=== PATIENT | female | born 1950 | race African-American/Black ===

== ENCOUNTER 2024-02-05 15:42 | Emergency (ER) | payer OTHER ==
[~2024-02-05] VITALS: Ht 170.2 cm; Wt 120.0 kg
[2024-02-05 15:48] VITALS: O2SAT 100
[2024-02-05] MEDS: KETOROLAC 30MG/ML VIAL IM ONE (16:20)
[2024-02-05 17:46] LABS: BASOPHILS % 0.4 % (0.0-2.0); HEMATOCRIT. 33.7 % (36.0-48.0); HEMOGLOBIN. 11.3 g/dL (12.0-16.0); LYMPHOCYTES % 13.9 % (20.0-50.0); MEAN CORPUSCULAR HEMOGLOBIN 30.1 pg (28.0-32.0); MEAN CORPUSCULAR HGB CONC 33.4 g/dL (31.0-37.0); MEAN PLATELET VOLUME 6.7 fl (7.4-10.4); MONOCYTES % 6.5 % (2.0-8.0); NEUTROPHILS % 79.2 % (40.0-76.0); PLATELET 270 x1000/uL (130-400); RED BLOOD CELL COUNT 3.75 mill/uL (4.2-5.4); RED CELL DISTRIBUTION WIDTH 14.7 % (11.6-14.6); WHITE BLOOD COUNT 7.9 x1000/uL (4.5-11.0)
[2024-02-05 17:50] LABS: CHLORIDE 108 mEq/L (98-107); POTASSIUM 3.5 mEq/L (3.5-5.1); SODIUM 143 mEq/L (136-145)
[2024-02-05 17:51] LABS: CALCIUM 9.7 mg/dL (8.7-10.4); CARBON DIOXIDE 27 mEq/L (21-32)
[2024-02-05 17:56] LABS: CREATININE 1.2 mg/dL (0.6-1.0); GLUCOSE 92 mg/dL (70-105); UREA NITROGEN BLOOD 25 mg/dL (9-23)
[2024-02-05 17:57] LABS: PROTHROMBIN TIME 11.6 sec (9.6-11.0)
[2024-02-05 17:58] LABS: ALANINE AMINOTRANSFERASE 8 IU/L (10-49); ALBUMIN 4.5 g/dL (3.2-4.8); ASPARTATE AMINOTRANSFERASE 17 IU/L (<34); BILIRUBIN TOTAL 0.8 mg/dL (0.1-1.0); PROTEIN TOTAL 7.9 g/dL (6.0-8.3)
[2024-02-05 18:00] LABS: TROPONIN I HIGH SENSITIVITY 56 ng/L (3.0-34)
[2024-02-05] MEDS: SODIUM CHLORIDE 0.9% 1,000 ML IV ONE (18:10)
[2024-02-05 19:17] LABS: CLARITY URINE CLEAR (CLEAR); COLOR URINE YELLOW (YELLOW); GLUCOSE URINE NEGATIVE (NEGATIVE); KETONES URINE NEGATIVE (NEGATIVE); LEUKOCYTE ESTERASE URINE NEGATIVE (NEGATIVE); NITRITE URINE NEGATIVE (NEGATIVE); OCCULT BLOOD URINE NEGATIVE (NEGATIVE); PROTEIN URINE NEGATIVE (NEGATIVE); SPECIFIC GRAVITY URINE 1.021 (1.005-1.030); UROBILINOGEN URINE 0.2 E.U./dL (0.2-1.0)
[2024-02-05] MEDS: ASPIRIN 81MG TABLET PO ONE (19:58)
[2024-02-05] MEDS: FUROSEMIDE 40MG/4ML VIAL IVP ONE (19:58)
[2024-02-05 22:49] VITALS: BP 138/80; PULSE 75; RESP 16; TEMP 98.9
== END 2024-02-05 23:04 | disposition short-term general hospital (02) ==
LOC: ER 15:42
DX: R41.82 Altered mental status, unspecified (principal); I63.9 Cerebral infarction, unspecified; N17.9 Acute kidney failure, unspecified; M17.11 Unilateral primary osteoarthritis, right knee; I11.0 Hypertensive heart disease with heart failure; I50.9 Heart failure, unspecified; E11.9 Type 2 diabetes mellitus without complications
CPT/HCPCS: 99291; 96374; 70450; 71045; 96361; 80053; 81003; 83880; 85025; 85610; 84484; 36415; 73560; 93005; 96372; J1940; J1885; J7030

== ENCOUNTER 2025-08-07 10:06 | Emergency (ER) | payer OTHER, MEDICAID ==
[~2025-08-07] VITALS: Ht 170.2 cm; Wt 130.0 kg
[2025-08-07 10:08] VITALS: O2SAT 98
[2025-08-07 12:40] LABS: HEMATOCRIT. 35.4 % (36.0-48.0); HEMOGLOBIN. 11.3 g/dL (12.0-16.0); MEAN PLATELET VOLUME 6.9 fl (7.4-10.4); PLATELET 54 x1000/uL (130-400); RED BLOOD CELL COUNT 3.43 mill/uL (4.2-5.4); RED CELL DISTRIBUTION WIDTH 15.2 % (11.6-14.6)
[2025-08-07 12:52] LABS: CREATININE 0.9 mg/dL (0.6-1.0); UREA NITROGEN BLOOD 12 mg/dL (9-23)
[2025-08-07 12:55] LABS: TROPONIN I HIGH SENSITIVITY 49 ng/L (3.0-34)
[2025-08-07 13:09] LABS: BAND% 2.0 % (1.0-6.0); EOSINOPHILS % MANUAL 1.0 % (0.0-5.0); LYMPHOCYTES % MANUAL 18.0 % (20.0-60.0); MONOCYTES % MANUAL 8.0 % (2.0-8.0); NEUTROPHILS % MANUAL 71.0 % (45.0-75.0); NUCLEATED RED BLOOD CELLS 1 /100 WBC
[2025-08-07 13:10] LABS: PLATELET ESTIMATE DECREASED
[2025-08-07 13:46] VITALS: BP 177/65; PULSE 59; RESP 25; TEMP 37; O2SAT 98
== END 2025-08-07 14:00 | disposition short-term general hospital (02) ==
LOC: ER 10:06
DX: R53.1 Weakness (principal); E87.8 Other disorders of electrolyte and fluid balance, not elsewhere classified; E11.9 Type 2 diabetes mellitus without complications; I10 Essential (primary) hypertension; R51.9 Headache, unspecified; Z98.890 Other specified postprocedural states
CPT/HCPCS: 71045; 80048; 82550; 84484; 85025; 93005; 99285